=== PATIENT | male | born 1960 | race Caucasian/White ===

== ENCOUNTER → 2022-01-30 | Outpatient (CLI) | payer OTHER | LOC: ORTHO 10:42 | PROVIDERS: ATTEND Orthopaedic Surgery | DX: S82.62XA Displaced fracture of lateral malleolus of left fibula, initial encounter for closed fracture (principal); X58.XXXA Exposure to other specified factors, initial encounter | CPT/HCPCS: 99213 ==

== ENCOUNTER → 2022-02-13 | Outpatient (CLI) | payer OTHER ==
--- NOTE | 2022-02-13 14:27 | Diagnostic Imaging Report ---
INDICATION: Follow-up fracture, pain COMPARISON: 01/25/2022 TECHNIQUE: 3 radiographs of the left ankle dated 01/13/2022 FINDINGS: Recent obliquely oriented fracture involving the distal fibula at the level of the tibial plafond and extending superior laterally is again identified. Overall alignment appears stable from the prior examination. Slight blurring of the fracture margins is noted without significant periosteal reaction identified at this time. No new fracture or dislocation. No destructive osseous process. The talar dome is unremarkable. Improved soft tissue swelling about the ankle. No suspicious radiopaque foreign body. IMPRESSION: Recent distal fibular fracture is again noted in stable alignment. Slight blurring of the fracture margins most likely relates to resorption and early healing, though no dense osseous bridging is identified. Recommend continued radiographic follow-up. No new acute osseous abnormality. Dictated by: Dictated on workstation # [id number]
== END ==
LOC: ORTHO 10:43
PROVIDERS: ATTEND Orthopaedic Surgery
DX: Z47.89 Encounter for other orthopedic aftercare (principal); S82.62XD Displaced fracture of lateral malleolus of left fibula, subsequent encounter for closed fracture with routine healing; X58.XXXD Exposure to other specified factors, subsequent encounter
CPT/HCPCS: 73610; 99213

== ENCOUNTER → 2022-03-06 | Outpatient (CLI) | payer OTHER ==
--- NOTE | 2022-03-06 16:23 | Diagnostic Imaging Report ---
INDICATION: Follow-up fracture. COMPARISON with 02/13/2022. FINDINGS: Oblique fracture of the distal fibula at the metadiaphyseal region is again noted with minimal displacement. There has been some early callus formation though solid bony bridging callus is not present. The ankle mortise remains in good alignment. Articulating surfaces are smooth. IMPRESSION: Minimally displaced distal fibular oblique fracture with very early callus formation noted. No appreciable change in overall alignment since the previous exam. Dictated by: Dictated on workstation # [id number]
== END ==
LOC: ORTHO 10:33
PROVIDERS: ATTEND Orthopaedic Surgery
DX: Z47.89 Encounter for other orthopedic aftercare (principal)
CPT/HCPCS: 73610; 99213

== ENCOUNTER → 2022-04-10 | Outpatient (CLI) | payer OTHER ==
--- NOTE | 2022-04-10 16:56 | Diagnostic Imaging Report ---
EXAMINATION: Left ankle 3 views HISTORY: Fracture COMPARISON: 03/06/2022 FINDINGS: There is unchanged alignment of healing suprasyndesmotic left distal fibular fracture. Mortise is intact. No other fracture is seen. There is mild ankle osteoarthritis. IMPRESSION: 1. Healing left distal fibular fracture. Dictated by: Dictated on workstation # [id number]
== END ==
LOC: ORTHO 13:46
PROVIDERS: ATTEND Orthopaedic Surgery
DX: S82.62XD Displaced fracture of lateral malleolus of left fibula, subsequent encounter for closed fracture with routine healing (principal); E78.00 Pure hypercholesterolemia, unspecified; E03.9 Hypothyroidism, unspecified; I10 Essential (primary) hypertension; X58.XXXD Exposure to other specified factors, subsequent encounter
CPT/HCPCS: 73610; 99213